=== PATIENT | male | born 1960 | race Caucasian/White ===

== ENCOUNTER 2022-03-14 06:58 | Inpatient (IN) | payer OTHER ==
[2022-03-14 07:12] VITALS: BMI 32.8
[2022-03-14] MEDS ORDERED: LABETALOL HCL 5 MG/1 ML (100MG/20 ML VIAL) IVPUSH ONE ×2 (07:59→09:42)
[2022-03-14] MEDS ORDERED: morphine CARPU-JECT 4 MG/1 ML DISP.SYRIN IVPUSH ONE ×2 (07:59→14:18)
[2022-03-14] MEDS ORDERED: morphine SULFATE 4 MG/ML VIAL ONE ×2 (08:05→14:38)
[2022-03-14] MEDS ORDERED: LABETALOL HCL 5 MG/1 ML (100MG/20 ML VIAL) ONE (08:05)
[2022-03-14 08:14] LABS: BASO % 0.2 % (0-2.0); EOS % 0.2 % (0-4.5); HEMATOCRIT 44.5 % (35.4-49); HEMOGLOBIN 15.6 GM/dL (11.7-16.9); LYMPH % 16.7 % (8-40); MCH 30.7 pg (25.7-33.7); MEAN CELL VOLUME 87.8 fl (80-96); MEAN PLT VOLUME 9.8 fl (7.5-11.1); MONO % 5.7 % (3.8-10.2); NEUT % 77.2 % (42.8-82.8); PLATELET COUNT 179 10^3/uL (134-434); RBC 5.07 M/mm3 (4.00-5.60); RDW 13.1 % (11.9-15.9); WHITE BLOOD COUNT 8.9 K/mm3 (4.0-10.0)
[2022-03-14 08:36] LABS: ALBUMIN 3.7 g/dl (3.4-5.0); BLOOD UREA NITROGEN 25.8 mg/dL (7-18)
[2022-03-14 08:39] LABS: CREATININE 1.7 mg/dL (0.55-1.3)
[2022-03-14 08:40] LABS: BILIRUBIN,TOTAL 0.4 mg/dL (0.2-1); TOT PROT 6.9 g/dl (6.4-8.2)
[2022-03-14 08:53] LABS: INR 1.03 (0.83-1.09); PROTHROMBIN TIME (PATIENT) 11.8 SEC (9.7-13.0)
[2022-03-14] MEDS ORDERED: SODIUM CHLORIDE 500 ML IV STA ×2 (09:41→09:47)
[2022-03-14] MEDS ORDERED: amLODIPine BESYLATE 10 MG TABLET (FP) PO ONE (09:45)
[2022-03-14 09:48] LABS: EPI CELLS 4 /uL (0-25.1); HYALINE CASTS 0 /uL (0-3.1); PH,URINE 7.5 (5.0-8.0); URINE APPEARANCE CLEAR; URINE BACTERIA 7 /uL (0-1359); URINE BILIRUBIN NEGATIVE (NEGATIVE); URINE COLOR YELLOW; URINE GLUCOSE (UA) NEGATIVE (NEGATIVE); URINE KETONE NEGATIVE (NEGATIVE); URINE LEUK ESTERASE NEGATIVE (NEGATIVE); URINE NITRITE NEGATIVE (NEGATIVE); URINE PROTEIN TRACE (NEGATIVE); URINE RBC 58 /uL (0-23.9); URINE UROBILINOGEN 0.2 mg/dL (0.2-1.0); URINE WBC 2 /uL (0-25.8)
[2022-03-14] MEDS ORDERED: amLODIPine BESYLATE 10 MG TABLET (FP) ONE (09:49)
[2022-03-14] MEDS ORDERED: TAMSULOSIN HCL 0.4 MG CAP PO ONE (10:14)
[2022-03-14] MEDS: DEXTROSE 5%-0.45% SALINE 1,000 ML IV SCH ×2 (10:15→18:34)
[2022-03-14] MEDS ORDERED: LACTATED RINGERS SOLUTION 1,000 ML IV SCH (10:15)
[2022-03-14] MEDS ORDERED: CEFEPIME 2 GM in DEXTROSE 5%-WATER 100 ML IVPB ONE (11:45)
[2022-03-14] MEDS ORDERED: CEFEPIME 2 GM/100 ML BAG IVPB ONE ×2 (12:02→12:03)
[2022-03-14] MEDS ORDERED: TAMSULOSIN HCL 0.4 MG CAP ONE (12:02)
[2022-03-14] MEDS: amLODIPine BESYLATE 10 MG TABLET (FP) PO SCH (12:06)
[2022-03-14] MEDS: TAMSULOSIN HCL 0.4 MG CAP PO SCH (12:22)
[2022-03-14] MEDS ORDERED: ACETAMINOPHEN 325 MG TABLET (FP) ONE (14:43)
[2022-03-14] MEDS: ACETAMINOPHEN 325 MG TABLET (FP) PO PRN ×2 (14:48→22:49)
[2022-03-14] MEDS ORDERED: PNEUMOC 20-VAL CONJ-DIP CRM/PF 0.5 ML SYRINGE IM ONE (19:19)
[2022-03-15] MEDS: TAMSULOSIN HCL 0.4 MG CAP PO SCH (08:49)
[2022-03-15 09:59] LABS: BASO % 0.4 % (0-2.0); EOS % 1.8 % (0-4.5); HEMATOCRIT 41.1 % (35.4-49); HEMOGLOBIN 13.7 GM/dL (11.7-16.9); LYMPH % 18.4 % (8-40); MCH 29.3 pg (25.7-33.7); MCHC 33.3 g/dl (32.0-35.9); MEAN PLT VOLUME 9.9 fl (7.5-11.1); MONO % 10.5 % (3.8-10.2); NEUT % 68.9 % (42.8-82.8); PLATELET COUNT 148 10^3/uL (134-434); RBC 4.67 M/mm3 (4.00-5.60); RDW 12.7 % (11.9-15.9); WHITE BLOOD COUNT 6.7 K/mm3 (4.0-10.0)
[2022-03-15] MEDS: amLODIPine BESYLATE 10 MG TABLET (FP) PO SCH (09:59)
[2022-03-15] MEDS ORDERED: ENOXAPARIN NA (PORCINE) 40 MG/0.4 ML DISP.SYRIN SQ SCH (10:00)
[2022-03-15] MEDS ORDERED: POLYETHYLENE GLYCOL (HEALTHYLAX) 3350 17 GM PACKET PO SCH (10:00)
[2022-03-15] MEDS: ACETAMINOPHEN 325 MG TABLET (FP) PO PRN (10:06)
[2022-03-15 10:13] LABS: ACTIVATED PTT 30.4 SECONDS (25.2-36.5)
[2022-03-15 10:27] LABS: INR 1.09 (0.83-1.09); PROTHROMBIN TIME (PATIENT) 12.5 SEC (9.7-13.0)
[2022-03-15 11:05] LABS: CHOLESTEROL 173 mg/dL (50-200); HDL CHOLESTEROL 50 mg/dL (40-60); LDL CHOLESTEROL (ONLY SJRH) 102 mg/dL (5-100); TRIGLYCERIDES 127 mg/dL (0-150)
[2022-03-15 13:06] LABS: BILIRUBIN,TOTAL 0.6 mg/dL (0.2-1); BLOOD UREA NITROGEN 19.3 mg/dL (7-18); CALCIUM 8.2 mg/dL (8.5-10.1); CREATININE 1.8 mg/dL (0.55-1.3); MAGNESIUM 2.3 mg/dL (1.8-2.4); PHOSPHOROUS 2.8 mg/dL (2.5-4.9); TOT PROT 5.9 g/dl (6.4-8.2)
[2022-03-15] MEDS ORDERED: ONDANSETRON 4 MG/2 ML VIAL IVPUSH PRN ×2 (13:18→14:30)
[2022-03-15] MEDS ORDERED: MIDAZOLAM HCL 2 MG/2 ML SINGLE DOSE VIAL ONE (13:18)
[2022-03-15] MEDS ORDERED: oxyCODONE HCL 5 MG TABLET PO PRN ×2 (13:18→14:30)
[2022-03-15] MEDS ORDERED: PROPOFOL 20 ML ONE (13:18)
[2022-03-15] MEDS ORDERED: LIDOCAINE HCL/PF (2%) 40 MG/2 ML VIAL ONE (13:19)
[2022-03-15] MEDS ORDERED: LACTATED RINGERS SOLUTION 1,000 ML IV SCH ×2 (13:30→14:30)
[2022-03-15] MEDS ORDERED: ceFAZolin SODIUM 1 GM VIAL IVPB ONE (13:33)
[2022-03-15] MEDS ORDERED: DEXAMETHASONE SOD PHOSPHATE 4 MG/1 ML VIAL ONE (13:34)
[2022-03-15] MEDS ORDERED: ACETAMINOPHEN 325 MG TABLET (FP) PO PRN (14:30)
[2022-03-16 08:12] VITALS: RESP 18
[2022-03-16 08:19] LABS: BASO % 0.2 % (0-2.0); EOS % 0.2 % (0-4.5); HEMATOCRIT 43.3 % (35.4-49); HEMOGLOBIN 14.7 GM/dL (11.7-16.9); LYMPH % 19.8 % (8-40); MCH 29.5 pg (25.7-33.7); MCHC 33.9 g/dl (32.0-35.9); MEAN CELL VOLUME 87.1 fl (80-96); MEAN PLT VOLUME 9.9 fl (7.5-11.1); MONO % 5.8 % (3.8-10.2); PLATELET COUNT 174 10^3/uL (134-434); RBC 4.96 M/mm3 (4.00-5.60); RDW 13.2 % (11.9-15.9); WHITE BLOOD COUNT 8.9 K/mm3 (4.0-10.0)
[2022-03-16] MEDS ORDERED: TAMSULOSIN HCL 0.4 MG CAP PO SCH (08:30)
[2022-03-16 08:48] LABS: ALBUMIN 3.4 g/dl (3.4-5.0); BLOOD UREA NITROGEN 19.6 mg/dL (7-18); MAGNESIUM 2.3 mg/dL (1.8-2.4)
[2022-03-16 08:50] LABS: CREATININE 1.3 mg/dL (0.55-1.3)
[2022-03-16 08:51] LABS: PHOSPHOROUS 3.2 mg/dL (2.5-4.9)
[2022-03-16 08:52] LABS: BILIRUBIN,TOTAL 0.7 mg/dL (0.2-1); TOT PROT 6.9 g/dl (6.4-8.2)
[2022-03-16] MEDS ORDERED: amLODIPine BESYLATE 10 MG TABLET (FP) PO SCH (10:00)
[2022-03-16] MEDS ORDERED: ENOXAPARIN NA (PORCINE) 40 MG/0.4 ML DISP.SYRIN SQ SCH (10:00)
[2022-03-16] MEDS ORDERED: POLYETHYLENE GLYCOL (HEALTHYLAX) 3350 17 GM PACKET PO SCH (10:00)
[2022-03-16] MEDS ORDERED: LACTATED RINGERS SOLUTION 1,000 ML IV SCH (12:29)
[2022-03-16 13:45] VITALS: BP 135/88; PULSE 76; TEMP 98.3
[2022-03-21 14:07] LABS: CA OXALATE MONOHYDR. 100 % (.); SIZE 2x2 mm (.); WEIGHT 12 mg (.)
== END 2022-03-16 15:37 | disposition home or self-care (01) | DRG 661 ==
LOC: JER 06:58 → JERBED 10:10 → J5S 17:55
PROVIDERS: ADMIT Internal Medicine; ATTEND Internal Medicine
PROC: 0TF68ZZ Fragmentation in Right Ureter, Via Natural or Artificial Opening Endoscopic (ICD-10-PCS; principal; 2022-03-15 13:38)
PROC: 0T768DZ Dilation of Right Ureter with Intraluminal Device, Via Natural or Artificial Opening Endoscopic (ICD-10-PCS; 2022-03-15 13:38)
DX: N13.2 Hydronephrosis with renal and ureteral calculous obstruction (principal); I10 Essential (primary) hypertension; N17.9 Acute kidney failure, unspecified; I16.0 Hypertensive urgency
CPT/HCPCS: 36415; 74176-TC; 76000-TC-FY; 80053; 80061; 81003; 82360; 83036; 83735; 84100; 85025; 85610; 85730; 86850; 86900; 86901; 87086; 88300-TC; 93005; 93010; 94760; 99285-25; C2617; C9803-CS; U0003; U0005